=== PATIENT | female | born 1940 | race African-American/Black ===

== ENCOUNTER 2017-06-10 15:09 | Outpatient (CLI) | payer MEDICARE, MEDICAID ==
--- NOTE | 2017-06-20 10:17 | MMO ---
BILATERAL SCREENING MAMMOGRAMS: Date: 06/10/17 Comparison made to outside films dated October 2008. This patient's mammogram was interpreted with the assistance of computer-aided detection. FINDINGS: Scattered fibroglandular densities. No mass, distortion, or suspicious calcification. No interval ch marta identified. IMPRESSION: BIRADS 1: Negative POS: ADE
== END 2017-06-10 15:10 | disposition home or self-care (01) ==
LOC: MAMMO 15:09
PROVIDERS: ATTEND Physician Assistant
DX: Z12.31 Encounter for screening mammogram for malignant neoplasm of breast (principal)
CPT/HCPCS: 77067; G0202

== ENCOUNTER 2019-03-12 12:35 | Outpatient (CLI) | payer MEDICARE, MEDICAID ==
--- NOTE | 2019-03-12 13:35 | MRI ---
MRI lumbar spine noncontrast: HISTORY: Right-sided sciatica. Left-sided sciatica. COMPARISON: None FINDINGS: Appropriate T1 marrow signal intensity of the lumbar vertebra. No fracture. No significant STIR hyper intensity to suggest vertebral body edema or ligamentous injury. 4.4 mm of anterolisthesis of L4 upon L5. Appropriate signal intensity of the visualized paraspinal muscles. Appropriate signal intensity of the visualized solid organs. T2 hyperintensity of right renal cortex likely represents a 5 mm cyst. Conus medullaris terminates at the mid L1 level. Visualized distal thoracic central spinal canal is grossly patent. T12-L1:Adequate disc hydration. No significant central canal stenosis. Neural foramina are patent. L1-L2:Adequate disc hydration. No significant central canal stenosis. Neural foramina are patent L2-L3:Adequate disc hydration. No significant central canal stenosis. Neural foramina are patent. L3-L4:Adequate disc hydration. Small left and right paracentral disc bulges. Ligament flavum thickeni ng and facet hypertrophy. Mild central canal stenosis. Mild right neural foraminal narrowing. Mild left foraminal narrowing. L4-L5:Adequate disc hydration. Generalized disc bulge, ligament flavum thickening and facet hypertrop hy result in moderate to severe stenosis. Mild bilateral foraminal narrowing. L5-S1:Adequate disc hydration. No significant posterior disc abnormality. Ligamentum flavum thickenin g and facet hypertrophy are present. Fluid in both facet joints. Moderate bilateral foraminal narrowing. IMPRESSION: 1. Degenerative changes of lumbar spine as described above. 2. Moderate to severe central canal stenosis at L4-L5. 3. Bilateral facet hypertrophy with fluid in both facet joints at L5-S1. Transcribed Date/Time: 03/12/2019 1:54 PM
== END 2019-03-12 12:36 | disposition home or self-care (01) ==
LOC: TBSIIMAG 12:35
PROVIDERS: ATTEND Nurse Practitioner Adult Health
DX: M54.31 Sciatica, right side (principal); M54.32 Sciatica, left side; M47.816 Spondylosis without myelopathy or radiculopathy, lumbar region; M48.061 Spinal stenosis, lumbar region without neurogenic claudication; M47.817 Spondylosis without myelopathy or radiculopathy, lumbosacral region
CPT/HCPCS: 72148

== ENCOUNTER 2019-07-30 06:30 | Outpatient (CLI) | payer MEDICARE, MEDICAID ==
--- NOTE | 2019-07-31 14:13 | EKG ---
Test Reason : Blood Pressure : / mmHG Vent. Rate : 067 BPM Atrial Rate : 067 BPM P-R Int : 200 ms QRS Dur : 072 ms QT Int : 390 ms P-R-T Axes : 065 -08 062 degrees QTc Int : 412 ms Sinus rhythm with Premature ventricular complexes or Fusion complexes Low voltage QRS Borderline ECG When compared with ECG of 04-JAN-2017 16:06, Fusion complexes are now Present Premature ventricular complexes are now Present Confirmed by VALENTINA VALENCIA, SJameson ([id number]) on 07/31/2019 2:12:24 PM Referred By: rita Confirmed By:DR. Juan MONTGOMERY MD
== END 2019-07-30 06:31 | disposition home or self-care (01) ==
LOC: LABBT 06:30
PROVIDERS: ATTEND Neurological Surgery
DX: Z01.810 Encounter for preprocedural cardiovascular examination (principal); M54.16 Radiculopathy, lumbar region
CPT/HCPCS: 93005; 93010

== ENCOUNTER 2019-08-08 06:29 | Day surgery (SDC) | payer MEDICARE, MEDICAID ==
[2019-07-30 11:19] VITALS: BMI 25.7
--- NOTE | 2019-08-07 15:30 | HP ---
HISTORY OF PRESENT ILLNESS: Ms. Rowland is a very pleasant 79-year-old woman, here today for evaluation of lower back pain and bilateral lower extremity pain over the last 18 months, which had worsened a great deal in the last 6 months. She has actually visited the ER once for the symptoms. This pain fits best with an L5 pattern, left is more severe than right. She reports that the pain is constant and worsened with activity, which she pushes through because it gives her peace of mind, knowing she is still able to be active. Resting and sitting does help, but only for limited reasons. She has not treated this today with any specific intervention. MRI from [place] reveals high-grade lateral recess stenosis bilaterally at L4-L5 with associated early grade 1 slip, which impinges upon the descending bilateral L5 nerve roots matching her symptoms well. ALLERGIES: TO CODEINE. PAST MEDICAL HISTORY: Significant for osteoarthritis. She does have also hypertension. PAST SURGICAL HISTORY: None. CURRENT MEDICATIONS: 1. Nexium. 2. Gabapentin. 3. An unspecified blood pressure medication. PHYSICAL EXAMINATION: She is alert and oriented x3. Gait is slowed and severely antalgic. Lower extremity exam is normal. She has a positive straight leg raise bilaterally. ASSESSMENT: Lumbar spinal stenosis and radiculopathy. PLAN: Dr. Garcia met with the patient, reviewed imaging, advocated for L4-L5 decompression. He explained to the patient the risks, benefits, and alternatives to the procedure. The patient expressed understanding and elected to move forward with surgery as discussed. I do believe the patient is mentally competent and capable of making medical decisions for herself. We will move forward with surgery as planned. Job ID: [id number]
[2019-08-08] MEDS ORDERED: Fentanyl 100 MCG/2 ML VIAL ONE ×2 (07:15→09:19)
[2019-08-08] MEDS ORDERED: Thrombin 5000 UNITS/5 ML VIAL ONE (07:33)
[2019-08-08] MEDS ORDERED: Bupivacaine 0.25% HCL 30 ML VIAL ONE (07:33)
[2019-08-08] MEDS ORDERED: SUGAMMADEX SODIUM 200 MG/2 ML VIAL ONE (09:05)
[2019-08-08] MEDS ORDERED: tiZANidine HCl 4 MG TAB ONE (09:25)
[2019-08-08] MEDS ORDERED: Ondansetron PF 4 MG/2 ML Vial ONE (11:15)
[2019-08-08] MEDS ORDERED: PHENYLEPHRINE-NS 100 MCG/ML 10 ML SYRINGE ONE (11:15)
[2019-08-08] MEDS ORDERED: Lidocaine 1% PF 5 ML VIAL ONE (11:15)
[2019-08-08] MEDS ORDERED: PROPOFOL 200 MG/20 ML VIAL ONE (11:15)
[2019-08-08] MEDS ORDERED: Rocuronium Bromide 10 MG/ML (10ML VIAL) ONE (11:15)
[2019-08-08] MEDS ORDERED: Dexamethasone 20 MG/5 ML VIAL ONE (11:15)
[2019-08-08] MEDS ORDERED: Glycopyrrolate 0.2 MG/ML 5 ML SYRINGE ONE (11:15)
[2019-08-08] MEDS ORDERED: traMADol HCl 50 MG TAB ONE (11:21)
--- NOTE | 2019-08-08 11:41 | OP ---
DATE OF PROCEDURE: 08/08/2019 DIGITAL CONTENT SPECIALIST: Anuj Falk PA-C INDICATION: Pain. DIAGNOSIS: Lumbar stenosis with lumbar radiculopathy. PROCEDURE PERFORMED: L4-L5 decompression. ANESTHESIA: General. DESCRIPTION OF PROCEDURE: The patient was brought into the operating room and placed under general anesthesia. She was flipped from the supine to prone position on the operating room table. A linear incision was planned over L4-L5. After prepping and draping and after an appropriate preoperative pause, the incision was created. The soft tissues were swept away from midline. A self-retaining retractor was placed. After confirming the appropriate level with C-arm fluoroscopy, Adson rongeur was used to remove the spinous process along the inferior aspect of L4 and the superior aspect of L5. A high-speed cutting drill bit as well as 2, 3, and 4 mm Kerrisons were used to perform a laminectomy at L4-L5. Laminectomy was extended laterally to encompass the medial aspect of the facet joint. After decompressing the L4-L5 segment, the wound was irrigated. Hemostasis was maintained throughout. The wound was then closed in anatomic layers and a pressure dressing was applied. There were no known procedural complications. Job ID: [id number]
== END 2019-08-08 13:55 | disposition home or self-care (01) ==
LOC: SDC 06:29
PROVIDERS: ATTEND Neurological Surgery
PROC: 01NB0ZZ Release Lumbar Nerve, Open Approach (ICD-10-PCS; principal; 2019-08-08)
DX: M48.061 Spinal stenosis, lumbar region without neurogenic claudication (principal); M54.16 Radiculopathy, lumbar region; I10 Essential (primary) hypertension; M19.90 Unspecified osteoarthritis, unspecified site; Z79.899 Other long term (current) drug therapy; Z88.5 Allergy status to narcotic agent
CPT/HCPCS: 76000; J1100; J2001; J2405; J2704; J2710; J3010; S0020

== ENCOUNTER 2019-10-05 08:57 | Outpatient (CLI) | payer MEDICARE, MEDICAID ==
--- NOTE | 2019-10-05 10:08 | MRI ---
MRI Cervical spine without contrast: HISTORY: Cervical radiculopathy. Patient states right-sided neck pain. COMPARISON: None FINDINGS: There is fluid signal intensity seen within the joint space of the occipital condyle and right latera l mass of the C1 vertebral body. This may be related to degenerative changes. No significant cord signal abnormality. Paravertebral soft tissues have a normal appearance and normal signal intensity. C1-2:Minimal increased T2-weighted signal intensity is seen within the joint space between the latera l masses of C1 and C2 on the right may be attributable to degenerative changes. C2-3: There is mild disc osteophyte complex with slight narrowing of the ventral subarachnoid space. The neural foramina are patent C3-4: There is a mild broad-based disc osteophyte complex and facet hypertrophic changes at this leve l. There is mild effacement of the ventral subarachnoid space. Neural foramina are patent. C4-5: There is loss of intervertebral disc height with endplate degenerative changes. There is a broa d-based disc osteophyte complex present which narrows the ventral subarachnoid space and results in slight flattening of the anterior aspect of the spinal cord at this level. Mild to moderate bilateral neural foraminal narrowing is present. C5-6: There is loss of intervertebral disc height with endplate degenerative changes. Broad-based dis c osteophyte complex is present. Facet hypertrophic changes are identified. There is generalized narrowing of the central spinal canal and effacement of the ventral subarachnoid space. There is mild to moderate right and what appears to be severe left-sided neural foraminal narrowing. C6-7: There is loss of intervertebral disc height. There is broad-based disc osteophyte complex with left paracentral disc protrusion. Findings narrow the ventral subarachnoid space. The right neural foramen is patent, but there is severe left-sided neural foraminal narrowing. C7-T1: No disc bulge disc ridge. Central spinal canal and neural foramina are patent. IMPRESSION: 1. Multilevel degenerative changes greatest at the C4-5, C5-C6, C6-7 levels with what appear to be se zandra degrees of left-sided neural foraminal narrowing at the C5-6 and C6-7 levels.
== END 2019-10-05 08:58 | disposition home or self-care (01) ==
LOC: TBSIIMAG 08:57
PROVIDERS: ATTEND Neurological Surgery
DX: M47.22 Other spondylosis with radiculopathy, cervical region (principal); M48.02 Spinal stenosis, cervical region
CPT/HCPCS: 72141

== ENCOUNTER 2020-10-05 12:51 | Emergency (ER) | payer MEDICARE, MEDICAID ==
[2020-10-05 14:03] LABS: Hemoglobin 12.7 g/dL (12.0-16.0); Mean Corpuscular HGB CONC 31.3 g/dL (32.0-36.0); Mean Corpuscular Hemoglobin 22.4 pg (27.0-31.0); Mean Corpuscular Volume 71.5 fL (78.0-98.0); Mean Platelet Volume 10.3 fL (7.4-10.4); Platelet Count 504 thou/uL (130-400); RBC Distribution Width 16.2 % (11.5-14.5); Red Blood Cell (RBC) Count 5.67 mill/uL (4.20-5.40); White Blood Cell (WBC) Count 8.1 thou/uL (4.8-10.8)
[2020-10-05 14:08] LABS: PTT 30.1 sec (22.9-36.1)
[2020-10-05 14:09] LABS: D-Dimer Test 0.31 *mcg/mL (0.27-0.43)
[2020-10-05 14:26] LABS: ALT (SGPT) 44 U/L (8-55); AST (SGOT) 59 U/L (5-34); Albumin 3.6 g/dL (3.4-4.8); Alkaline Phosphatase 85 U/L (40-110); Anion Gap 17 mmol/L (10-20); BUN (Urea Nitrogen) 9 mg/dL (9.8-20.1); Bilirubin, Total 0.3 mg/dL (0.2-1.2); CK (CPK) 52 U/L (29-168); Calc. Creatinine Clearance 0 mL/min (70-130); Calcium 8.6 mg/dL (7.8-10.44); Carbon Dioxide 25 mmol/L (23-31); Chloride 100 mmol/L (98-107); Globulin 3.8 g/dL (2.4-3.5); Glucose 137 mg/dL (83-110); Potassium 5.1 mmol/L (3.5-5.1); Protein, Total 7.4 g/dL (5.8-8.1); Sodium 137 mmol/L (136-145)
--- NOTE | 2020-10-05 14:28 | RAD ---
RADIOGRAPH CHEST 1 VIEW: DATE: 10/05/2020 TIME: 2:16 PM HISTORY: 80-year-old COVID 19 positive female with cough, hypoxemia, and dyspnea COMPARISON: 01/04/2017 FINDINGS: Mild reticular or groundglass new infiltrates at lateral aspect of left upper lobe, lateral mid and l ower lung zones, and to a lesser degree peripheral aspect of right mid and lower lung zones. No cardiomegaly or effacement of lateral costophrenic angles. No pneumothorax. IMPRESSION: Evidence for at least mild COVID 19 pneumonia
[2020-10-05 14:29] LABS: Band 12 % (5-11); Eosinophils 6 % (0-10); Hypochromia SLIGHT = 6-15 cells (100X) (0-5/hpf); Lymphocytes 10 % (21-51); MDiff Complete? YES; Microcytosis SLIGHT = 6-15 cells (100X) (0-5/hpf); Monocytes 20 % (0-10); Neutrophil 41 % (42-75); Ovalocytes SLIGHT = 2-5 cells (100X) (0-1/hpf); Platelet Morphology Comment Appears Increased; Polychromasia SLIGHT = 2-3 cells (100X) (0-2/hpf); Reactive Lymphocytes 11 % (0-10); Reflex for Review?? NO; Schistocytes SLIGHT = 2-5 cells (100X) (0-1/hpf); Tear Drops MODERATE= 6-15 cells (100X) (0-1/hpf)
[2020-10-05 22:26] LABS: SARS-CoV-2 PCR by NAA DETECTED (NotDetected)
== END 2020-10-05 17:00 | disposition home or self-care (01) ==
LOC: ERS 12:51
DX: U07.1 COVID-19 (principal); Z79.899 Other long term (current) drug therapy; I10 Essential (primary) hypertension; E11.9 Type 2 diabetes mellitus without complications; K21.9 Gastro-esophageal reflux disease without esophagitis; Z87.891 Personal history of nicotine dependence
CPT/HCPCS: 71045; 80053; 82550; 83605; 83880; 84484; 85025; 85379; 85610; 85730; 86140; 87040; 93005; 94760; 99285; U0003; U0005; 36415; 87635